=== PATIENT | male | born 1980 | race African-American/Black ===

== ENCOUNTER 2020-09-13 15:42 | Emergency (ER) | payer OTHER, SELFPAY ==
[2020-09-13 16:07] VITALS: BP 130/84; PULSE 108; RESP 20; TEMP 36.9; O2SAT 100
--- NOTE | 2020-09-13 16:48 | ED.DENTAL ---
HPI - Dental/Oral General Chief complaint: Dental/Oral Stated complaint: sore throat and right side from neck up pain Time Seen by Provider: 09/13/20 16:48 Source: patient and RN notes reviewed Mode of arrival: ambulatory Limitations: no limitations History of Present Illness HPI Narrative: 39-year-old male presents with concern for right upper dental pain. Reports dental pain is radiating to the side of his face and to his right muslim and ear. Denies drooling, difficulty swallowing, fever, foul taste in his mouth. Reports he has had problems with infected teeth in the past. MD Complaint: tooth pain Related Data Home Medications Medication Instructions Recorded Confirmed aspirin 81 mg PO DAILY 09/13/20 09/13/20 diltiazem HCl 120 mg PO DAILY 09/13/20 09/13/20 ertugliflozin [Steglatro] 5 mg PO DAILY 09/13/20 09/13/20 sertraline 50 mg PO DAILY 09/13/20 09/13/20 Allergies Allergy/AdvReac Type Severity Reaction Status Date / Time Penicillins Allergy Mild STATES Verified 09/13/20 16:10 PARENTS AND SIBLING ALLERGIC SO THINKS HE MIGHT BE TO Review of Systems Review of Systems: Narrative: CONSTITUTIONAL: Denies malaise, chills, sweats, or fever. EYES: Denies visual changes, redness, or discharge. ENT: Denies rhinorrhea, congestion, sinus pain, otalgia or sore throat. Reports right upper dental pain CARDIOVASCULAR: Denies chest pain, palpitations, or edema. RESPIRATORY: Denies cough or dyspnea. SKIN: Denies rash or itching. MUSCULOSKELETAL: Denies myalgia. NEUROLOGIC: Denies numbness, weakness, or headache. All systems reviewed & are unremarkable except as noted in HPI and below PMFSH Comments At time of signature, agree with nursing past medical, surgical, social and family history. There is no relevant family history pertinent to the presenting complaint Exam Narrative: Exam Narrative: GENERAL: Well-appearing, well-nourished, and in no acute distress. HEAD: Normocephalic, atraumatic. EYES: PERRLA, conjunctivae clear ENT: Nares clear. Mucous membranes moist. TM pearly collins with sharp light reflex bilaterally; no tragal tenderness. Oropharynx without edema, erythema or lesions. Tonsils not enlarged and without exudate. Dental carry noted tooth #1 with mild left facial swelling NECK: Supple. No lymphadenopathy. CHEST: No respiratory distress. Clear to auscultation. No bony deformities, no asymmetry. Speaks in full sentences. HEART: Regular rate and rhythm. SKIN: Warm, dry, no rash. NEURO: Alert and oriented x3. PSYCH: Normal mood and affect Course Course Emergency Course: Patient is aware of diagnosis, understands and agrees to treatment plan. Anticipatory guidance given. Patient agrees to follow-up as directed and is aware of reasons to seek care at the emergency department. Portions of this record may have been created with voice recognition software Vital Signs Vital signs: Vital Signs Temperature 98.4 F 09/13/20 16:07 Pulse Rate 108 H 09/13/20 16:07 Respiratory Rate 20 09/13/20 16:07 Blood Pressure 130/84 09/13/20 16:07 Pulse Oximetry 100 09/13/20 16:07 Temperature 98.4 F 09/13/20 16:07 Pulse Rate 108 H 09/13/20 16:07 Respiratory Rate 20 09/13/20 16:07 Blood Pressure 130/84 09/13/20 16:07 Pulse Oximetry 100 09/13/20 16:07 Reviewed. MDM - Dental/Oral MDM Narrative Medical decision making narrative: Patients pain and complaint coupled with physical findings are consistant with dentalgia. There are no focal signs of space occupying lesions that are compromising to the airway; no dysphagia, odynophagia, dysphonia, or dyspnea. No uvular deviation or soft palate edema. Patient is non-toxic appearing. The floor of the mouth is soft with no signs of Rico's Angina; no induration below mandible, no neck pain. Patient is without trismus or drooling and able to swallow secretions. Patient is felt appropriate for discharge home with dental
== END 2020-09-13 16:55 | disposition home or self-care (01) ==
PROVIDERS: Emergency Provider Nurse Practitioner
DX: K04.7 Periapical abscess without sinus (principal); I10 Essential (primary) hypertension; F41.9 Anxiety disorder, unspecified; F32.9 Major depressive disorder, single episode, unspecified
CPT/HCPCS: 99213; G0463

== ENCOUNTER 2023-01-17 11:17 | Emergency (ER) | payer OTHER, SELFPAY ==
[2023-01-17 11:26] VITALS: BP 162/104; PULSE 93; RESP 18; TEMP 36.2; O2SAT 100
--- NOTE | 2023-01-17 11:30 | ED.DENTAL ---
HPI - Dental/Oral General Chief complaint: Dental/Oral Stated complaint: tooth pain Time Seen by Provider: 01/17/23 11:31 Source: patient Mode of arrival: ambulatory Limitations: no limitations History of Present Illness HPI Narrative: 42 yo M presents with c/o L lower dental pain for several days. Has not been to dentist in decades . Does not have dental insurance. Afebrile. No significant swelling noted. All systems reviewed and negative except as noted above. Related Data Home Medications Medication Instructions Recorded Confirmed aspirin 81 mg chewable tablet 81 mg PO DAILY 09/13/20 01/17/23 diltiazem HCl 120 mg 120 mg PO DAILY 09/13/20 01/17/23 capsule,extended release 24 hr atorvastatin 40 mg tablet 40 mg PO DAILY 01/17/23 01/17/23 bupropion HCl 450 mg 24 hr tablet, 450 mg PO DAILY 01/17/23 01/17/23 extended release empagliflozin 25 mg tablet 25 mg PO DAILY 01/17/23 01/17/23 (Jardiance) pantoprazole 20 mg tablet,delayed 40 mg PO DAILY 01/17/23 01/17/23 release Allergies Allergy/AdvReac Type Severity Reaction Status Date / Time Penicillins Allergy Mild STATES Verified 01/17/23 11:34 PARENTS AND SIBLING ALLERGIC SO THINKS HE MIGHT BE TO Review of Systems Review of Systems: CONSTITUTIONAL: Denies fever, chills, or sweats. EYES: Denies visual changes, redness, or discharge. ENT: Denies rhinorrhea, congestion, sore throat, or otalgia. Reports left lower dental pain. CARDIOVASCULAR: Denies chest pain, palpitations, or edema. RESPIRATORY: Denies cough or dyspnea. GASTROINTESTINAL: Denies abdominal pain, nausea, vomiting, or diarrhea. GENITOURINARY: Denies dysuria or hematuria. SKIN: Denies rash or itching. MUSCULOSKELETAL: Denies back pain, joint pain, or myalgia. NEUROLOGIC: Denies headache, numbness, or weakness. PSYCHIATRIC: Denies anxiety or depression. All other systems reviewed are negative, except as documented in HPI. PMFSH Comments At time of signature, agree with nursing past medical, surgical, social and family history. There is no relevant family history pertinent to the presenting complaint. Exam Narrative: GENERAL: This is a well-nourished, well-developed patient, in no apparent distress. HEAD: normocephalic, atraumatic. EYES: PERRL. Sclera clear/white. Vision is grossly intact. EARS: External ears normal NOSE: External nose normal MOUTH: tooth #20 broken, painful on palpation. no significant swelling or fluctuance. NECK: Neck supple, non-tender without lymphadenopathy, masses or thyromegaly. CARDIOVASCULAR: Regular rate and rhythm without murmurs, gallops, or rubs. RESPIRATORY: Clear to auscultation. Breath sounds equal bilaterally. No wheezes, rales, or rhonchi. SKIN: warm, Dry, intact with no suspicious lesions or rash, good texture and turgor. NEURO: awake, alert, and oriented to person, place and time. There were no obvious focal neurologic abnormalities. EXTREMITIES: No joint tenderness, effusion, or edema noted. Course Course Level of Care: Express Care Visit Vital Signs Vital signs: Vital Signs Temperature 36.2 C L 01/17/23 11:26 Pulse Rate 93 01/17/23 11:26 Respiratory Rate 18 01/17/23 11:26 Blood Pressure 162/104 H 01/17/23 11:26 Pulse Oximetry 100 01/17/23 11:26 Oxygen Delivery Room Air 01/17/23 11:26 Temperature 36.2 C L 01/17/23 11:26 Pulse Rate 93 01/17/23 11:26 Respiratory Rate 18 01/17/23 11:26 Blood Pressure 162/104 H 01/17/23 11:26 Pulse Oximetry 100 01/17/23 11:26 Oxygen Delivery Room Air 01/17/23 11:26 reviewed MDM - Dental/Oral MDM Narrative Medical decision making narrative: given dental clinic referral sheet Patient is aware of diagnosis, understands and agrees to treatment plan. Anticipatory guidance given. Patient agrees to follow-up as directed and is aware of reasons to seek care at the emergency department. Portions of this record may have been
== END 2023-01-17 11:40 | disposition home or self-care (01) ==
PROVIDERS: Emergency Provider Nurse Practitioner Family; PCP Nurse Practitioner Family
DX: K08.89 Other specified disorders of teeth and supporting structures (principal); E78.00 Pure hypercholesterolemia, unspecified; I10 Essential (primary) hypertension; K21.9 Gastro-esophageal reflux disease without esophagitis; E11.9 Type 2 diabetes mellitus without complications; Z79.84 Long term (current) use of oral hypoglycemic drugs; F41.9 Anxiety disorder, unspecified; F32.A Depression, unspecified; Z79.82 Long term (current) use of aspirin
CPT/HCPCS: 99213; G0463